=== PATIENT | female | born 1960 | race Caucasian/White ===

== ENCOUNTER → 2021-11-20 | Outpatient (CLI) | payer OTHER ==
--- NOTE | 2021-11-20 14:30 | Diagnostic Imaging Report ---
INDICATION: Bilateral knee pain. FINDINGS: 8 views. Right: Articulating surfaces are smooth. There is mild narrowing of the medial compartment. There is narrowing of the medial aspect of the patellofemoral joint. Trochlea appears normal. Patella is in good alignment. No fractures are seen. No loose bodies or chondrocalcinosis. Left: Articulating surfaces are smooth. Joint spaces well maintained. There is very mild hypertrophic change along the lateral femoral condyle. Mild narrowing along the lateral patellofemoral joint. There are no fractures. No chondrocalcinosis or loose bodies. IMPRESSION: Mild bilateral multicompartmental degenerative arthritic changes noted. Dictated by: Dictated on workstation # [id number]
== END ==
LOC: ORTHO 10:51
PROVIDERS: ATTEND Orthopaedic Surgery
DX: M17.0 Bilateral primary osteoarthritis of knee (principal)
CPT/HCPCS: 20610